=== PATIENT | male | born 1965 | race African-American/Black ===

== ENCOUNTER 2022-05-26 07:20 | Emergency (ER) | payer SELFPAY ==
[~2022-05-26] VITALS: Ht 172.7 cm; Wt 94.9 kg
[2022-05-26 07:22] VITALS: BP 126/87
--- NOTE | 2022-05-26 07:30 | NUR ---
PT AMB TO BED12.
--- NOTE | 2022-05-26 07:40 | NUR ---
56/M PRESENTS TO ED WITH C/O RIGHT HEEL PAIN INTERMITTENTLY X1 MONTH. PATIENT DENIES INJURY OR TRAUMA, STATES HE BELIEVES ITS GOUT BUT DENIES HISTORY OF. PATIENT REPORTS 6/10 PAIN AND SWELLING, STATES IT WORSENS WITH AMBULATION.
[2022-05-26] MEDS ORDERED: IBUP-2213 PO (07:45)
[2022-05-26] MEDS ORDERED: PRED20TA5 PO (07:45)
--- NOTE | 2022-05-26 07:51 | NUR ---
Patient discharged with v/s stable. Written and verbal after care instructions ABOUT ANKLE PAIN given and explained. Patient alert, oriented and verbalized understanding of instructions. Ambulatory with steady gait. All questions addressed prior to discharge. ID band removed. Patient advised to follow up with PMD. Rx of IBUPROFEN AND DELTASONE given. Patient educated on indication of medication including possible reaction and side effects. Opportunity to ask questions provided and answered.
== END 2022-05-26 07:51 | disposition home or self-care (01) ==
LOC: MED 07:20
DX: M79.671 Pain in right foot (principal); Z79.899 Other long term (current) drug therapy
CPT/HCPCS: 99283

== ENCOUNTER 2023-07-05 18:44 | Emergency (ER) | payer SELFPAY ==
[~2023-07-05] VITALS: Ht 172.7 cm; Wt 98.9 kg
[~2023-07-05 18:44] MED LIST: IBUP-2213 PO; PRED20TA5 PO
[2023-07-05 19:24] VITALS: BP 146/71; PULSE 84; RESP 16; TEMP 99.4; O2SAT 98
[2023-07-05] MEDS ORDERED: predniSONE 20 MG TAB PO ONE (20:20)
[2023-07-05] MEDS ORDERED: PRED20TA5 PO (20:30)
== END 2023-07-05 20:41 | disposition home or self-care (01) ==
LOC: MED 18:44
DX: M10.072 Idiopathic gout, left ankle and foot (principal); Z79.899 Other long term (current) drug therapy; Z79.1 Long term (current) use of non-steroidal anti-inflammatories (NSAID)
CPT/HCPCS: 99283; J7512

== ENCOUNTER 2024-05-23 12:21 | Emergency (ER) | payer SELFPAY ==
[~2024-05-23] VITALS: Ht 172.7 cm; Wt 93.6 kg
[2024-05-23 12:39] VITALS: BP 153/77; PULSE 88; RESP 18; TEMP 98.5; O2SAT 98
[2024-05-23] MEDS ORDERED: PRED20TA5 PO (13:56)
[2024-05-23] MEDS ORDERED: IBUP-2213 PO (13:56)
[2024-05-23 14:08] VITALS: BP 153/77; PULSE 88; RESP 18; TEMP 98.5; O2SAT 98
== END 2024-05-23 14:09 | disposition home or self-care (01) ==
LOC: MED 12:21
DX: M10.072 Idiopathic gout, left ankle and foot (principal); Z76.0 Encounter for issue of repeat prescription; R03.0 Elevated blood-pressure reading, without diagnosis of hypertension; Z79.899 Other long term (current) drug therapy
CPT/HCPCS: 99281